=== PATIENT | female | born 1990 | race American Indian/Alaskan Native ===

== ENCOUNTER 2018-10-23 02:56 | Emergency (ER) | payer MEDICAID ==
[2018-10-23 03:46] LABS: Hematocrit 40.2 % (30.3-42.9); Mean Corpuscular HGB Conc 32 % (30-34); Mean Corpuscular Volume 84 fl (79-97); Platelet Count 230 K/mm3 (140-440); Red Blood Count 4.79 M/mm3 (3.65-5.03); Red Cell Distribution Width 15.6 % (13.2-15.2)
[2018-10-23 03:48] LABS: Bilirubin,Urine NEG (Negative); Blood,Urine SM (Negative); Color,Urine Yellow (Yellow); Mucus,Urine FEW /HPF; Protein,Urine <15 mg/dL mg/dL (Negative); Urobilinogen,Urine < 2.0 mg/dL (<2.0)
[2018-10-23 04:05] LABS: Alanine Aminotransferase 14 units/L (7-56); Albumin 4.2 g/dL (3.9-5); BUN/Creatinine Ratio 13; Blood Urea Nitrogen 10 mg/dL (7-17); Calcium 9.1 mg/dL (8.4-10.2); Hemolysis Index 5
[2018-10-23] MEDS ORDERED: FLEXERIL PO ONE (04:53)
[2018-10-23] MEDS ORDERED: TORADOL IM ONE (04:53)
[2018-10-23] MEDS ORDERED: ZOFRAN ODT PO ONE (04:53)
--- NOTE | 2018-10-23 05:17 | Cat Scan Report ---
PROCEDURE: CT HEAD/BRAIN WO CON TECHNIQUE: Computerized tomography of the head was performed without contrast material. CT DOSE LENGTH PRODUCT: 920.5 mGycm HISTORY: migraine x5 days COMPARISONS: None . FINDINGS: Exam is limited by artifacts patient's hair. Skull and scalp: Normal . Paranasal sinuses: Normal . Ventricles and subarachnoid spaces: Normal . Cerebrum: No evidence of hemorrhage, acute infarction or mass . Cerebellum and brainstem: No evidence of hemorrhage, acute infarction or mass . Vasculature: Normal . IMPRESSION: No acute abnormality is seen. The examination is limited. . This document is electronically signed by Josafat Meza MD., Oct 23 2018 05:15:03 AM ET
--- NOTE | 2018-10-23 05:45 | Emergency Department Report ---
ED Headache HPI - General Chief Complaint: Headache Stated Complaint: SEVERE MIGRAINE & BACK/NECK PAIN Time Seen by Provider: 10/23/18 04:40 Source: patient Exam Limitations: no limitations - History of Present Illness Initial Comments: Patient is a 28-year-old -Filipino female with a history of chronic migraine headaches who presents to the ED with the complaint of acute onset persistent bitemporal headaches and pressure with the photophobia and nausea for the last 4 days. Patient states that she's been taking Fioricet and Imitrex with no relief. Patient also complains of low back pain. Patient states that the headache is typical of her chronic migraine headaches, and that it is not the worst headache of her life. Patient denies vomiting, change in vision, d izziness, neck pain, fever, chills, sore throat, nasal and sinus congestion, chest pain or shortness of breath or syncope and seizures. Timing/Duration: constant, waxing and waning, other (4 DAYS) Quality: severe, constant, sharp, throbbing Head Injury Location: temporal Recent Head Trauma: no recent headache/trauma, chronic headaches, occasional headaches Associated Symptoms: denies: confusion, fatigue, facial pain, fever/chills, loss of consciousness, nausea/vomiting, nasal congestion, nasal drainage, numbness in legs/feet, seizures, sinus infection, stiff neck, vision changes Allergies/Adverse Reactions: Allergies No Known Allergies Allergy (Unverified 10/23/18 03:02) Home Medications: Ambulatory Orders Cyclobenzaprine [Flexeril] 10 mg PO TID PRN #15 tablet 10/23/18 Ketorolac [Toradol] 10 mg PO Q8H PRN #20 tablet 10/23/18 Promethazine [Phenergan] 25 mg PO Q6HR PRN #24 tab 10/23/18 ED Review of Systems ROS: Stated complaint: SEVERE MIGRAINE & BACK/NECK PAIN Other details as noted in HPI Comment: All other systems reviewed and negative Constitutional: no symptoms reported, see HPI, malaise. denies: chills, diaphoresis, weakness Eyes: as per HPI. denies: eye pain, eye discharge, vision change ENT: as per HPI, congestion. denies: ear pain, throat pain, hearing loss, epistaxis Respiratory: no symptoms reported, see HPI, cough. denies: shortness of breath, SOB with exertion, SOB at rest Cardiovascular: as per HPI. denies: chest pain, palpitations, dyspnea on exertion, syncope, paroxysmal nocturnal dyspnea Endocrine: no symptoms reported, see HPI. denies: excessive sweating, intolerance to heat, increased hunger Gastrointestinal: as per HPI, nausea. denies: abdominal pain, diarrhea, constipation, hematemesis, hematochezia Genitourinary: as per HPI. denies: urgency, dysuria, hematuria Musculoskeletal: as per HPI. denies: joint swelling, arthralgia Skin: as per HPI. denies: rash, lesions, change in color, change in hair/nails Neurological: as per HPI, headache. denies: numbness, paresthesias, confusion, abnormal gait, vertigo Psychiatric: as per HPI Hematological/Lymphatic: as per HPI ED Past Medical Hx - Past Medical History Previous Medical History?: Yes Hx Headaches / Migraines: Yes - Surgical History Past Surgical History?: No - Social History Smoking Status: Never Smoker - Medications Home Medications: Home Medications Medication Instructions Recorded Confirmed Last Taken Type Cyclobenzaprine [Flexeril] 10 mg PO TID PRN #15 tablet 10/23/18 Unknown Rx Ketorolac [Toradol] 10 mg PO Q8H PRN #20 tablet 10/23/18 Unknown Rx Promethazine [Phenergan] 25 mg PO Q6HR PRN #24 tab 10/23/18 Unknown Rx ED Physical Exam - General Limitations: No Limitations General appearance: alert, in no apparent distress - Head Head exam: Present: atraumatic, normocephalic, normal inspection - Eye Eye exam: Present: normal appearance, PERRL, EOMI - ENT ENT exam: Present: normal exam, normal orophraynx, mucous membranes moist, TM's normal bilaterally, normal external ear exam - Neck Neck exam: Present: normal inspection, full ROM. Absent: tenderness, meningismus, lymphadenopathy - Respiratory Respiratory exam: Present: normal lung sounds bilaterally. Absent: respiratory distress, wheezes, rhonchi, stridor, chest wall tenderness, accessory muscle use, decreased breath sounds - Cardiovascular Cardiovascular Exam: Present: bradycardia, normal heart sounds - GI/Abdominal GI/Abdominal exam: Present: soft, normal bowel sounds. Absent: tenderness, hyperactive bowel sounds, hypoactive bowel sounds - Rectal Rectal exam: Present: deferred - Extremities Exam Extremities exam: Present: normal inspection, full ROM, normal capillary refill - Back Exam Back exam: Present: normal inspection, full ROM. Absent: tenderness, CVA tenderness (R), CVA tenderness (L) - Neurological Exam Neurological exam: Present: alert, oriented X3, CN II-XII intact, normal gait, reflexes normal - Psychiatric Psychiatric exam: Present: normal affect - Skin Skin exam: Present: warm, dry, intact, normal color ED Course Vital Signs 10/23/18 10/23/18 10/23/18 02:59 03:02 06:18 Temperature 97.8 F 97.8 F Pulse Rate 56 L 50 L 58 L Respiratory 18 18 18 Rate Blood Pressure 155/103 155/103 Blood Pressure 122/77 [Left] O2 Sat by Pulse 100 100 99 Oximetry ED Medical Decision Making - Lab Data Result diagrams: 10/23/18 03:27 10/23/18 03:27 - Radiology Data Radiology results: report reviewed, image reviewed - Medical Decision Making Patient is alert and oriented x 3 and is in no acute distress with stable vital signs. Lab test results are unremarkable. Head CT Scan w/o contrast shows no acute intracranial abnormalities. Patient was treated for headache and on r eevaluation, headache has resolved with medications, and patient discharged home on medications and advised to follow up with her PCP in 2 days for reevaluation, or return to the ED immediately if symptoms get worse. - Differential Diagnosis chronic migraine headache, sinus headache, frontal sinusitis Critical care attestation.: If time is entered above; I have spent that time in minutes in the direct care of this critically ill patient, excluding procedure time. ED Disposition Clinical Impression: Spasm of muscle of lower back Migraine headache without aura Qualifiers: Status migrainosus presence: with status migrainosus Intractability: not intractable Qualified Code(s): G43.001 - Migraine without aura, not intractable, with status migrainosus Disposition: -01 TO HOME OR SELFCARE Is pt being admited?: No Does the pt Need Aspirin: No Condition: Stable Instructions: Migraine Headache (ED), Muscle Spasm (ED) Additional Instructions: TAKE MEDICATIONS WITH FOOD, DRINK PLENTY OF FLUIDS AND FOLLOW UP WITH YOUR PRIMARY CARE PHYSICIAN ADVISED. RETURN TO THE ED IMMEDIATELY IF SYMPTOMS GET WORSE. Prescriptions: Cyclobenzaprine [Flexeril] 10 mg PO TID PRN #15 tablet PRN Reason: Muscle Spasm Promethazine [Phenergan] 25 mg PO Q6HR PRN #24 tab PRN Reason: Nausea Ketorolac [Toradol] 10 mg PO Q8H PRN #20 tablet PRN Reason: Pain Referrals: PRIMARY CARE,MD [Primary Care Provider] - 3-5 Days Time of Disposition: 05:46 Print Language: [place]
[2018-10-23 06:19] VITALS: BP 122/77
[2018-10-23 08:21] LABS: Basophils % (Manual) 0 % (0.0-1.8); RBC Morphology Normal; Total Cells Counted 100
== END 2018-10-23 06:20 | disposition home or self-care (01) ==
LOC: ED 02:56
DX: G43.001 Migraine without aura, not intractable, with status migrainosus (principal); M62.830 Muscle spasm of back
CPT/HCPCS: 36415; 70450; 80053; 81001; 85007; 85025; 96372; 99284; J1885; Q0162

== ENCOUNTER 2019-05-11 11:32 | Emergency (ER) | payer SELFPAY ==
[2019-05-11 12:23] VITALS: BP 115/64
[2019-05-11] MEDS ORDERED: diphenhydrAMINE 50 MG/ML VIAL IV STA (13:33)
[2019-05-11] MEDS ORDERED: SODIUM CHLORIDE 0.9% 1000 ML 1,000 ML IV ONE (13:33)
[2019-05-11] MEDS ORDERED: dexAMETHasone 4 MG/ML VIAL IV ONE (13:33)
[2019-05-11] MEDS ORDERED: METOCLOPRAMIDE 10 MG/2 ML INJ IV STA (13:33)
[2019-05-11] MEDS ORDERED: KETOROLAC 30 MG/1 ML INJ IV STA (13:33)
--- NOTE | 2019-05-11 14:12 | Emergency Department Report ---
ED Headache HPI - General Chief Complaint: Headache Stated Complaint: MIGRAINE AND BACK PAIN Time Seen by Provider: 05/11/19 13:32 - History of Present Illness Initial Comments: 28 -year-old [place]an female with a known past medical history of migraine headaches presents emergency department complaining of a 5-7 days exacerbations the left parietal migraine headache associated with occasional dizziness, blurred vision and nausea and photo phobia. Timing/Duration: 1 week Quality: mild, moderate Head Injury Location: parietal Recent Head Trauma: chronic headaches Associated Symptoms: denies: fatigue, fever/chills, flushing, loss of consciousness, nausea/vomiting, nasal congestion, nasal drainage, seizures, stiff neck, vision changes, weakness Allergies/Adverse Reactions: Allergies Sulfa (Sulfonamide Antibiotics) Allergy (Verified 05/11/19 11:33) Anaphylaxis Home Medications: Ambulatory Orders Cyclobenzaprine [Flexeril] 10 mg PO TID PRN #15 tablet 10/23/18 Ketorolac [Toradol] 10 mg PO Q8H PRN #20 tablet 10/23/18 Promethazine [Phenergan] 25 mg PO Q6HR PRN #24 tab 10/23/18 Ketorolac [Toradol] 10 mg PO Q6H PRN #15 tablet 05/11/19 methOCARBAMOL [Robaxin TAB] 750 mg PO Q8H PRN #14 tablet 05/11/19 ED Review of Systems ROS: Stated complaint: MIGRAINE AND BACK PAIN Other details as noted in HPI Comment: All other systems reviewed and negative ED Past Medical Hx - Past Medical History Previous Medical History?: Yes Hx Headaches / Migraines: Yes Hx Asthma: Yes Additional medical history: anxiety - Surgical History Past Surgical History?: Yes Additional Surgical History: T&A - Social History Smoking Status: Never Smoker Substance Use Type: None - Medications Home Medications: Home Medications Medication Instructions Recorded Confirmed Last Taken Type Cyclobenzaprine [Flexeril] 10 mg PO TID PRN #15 tablet 10/23/18 Unknown Rx Ketorolac [Toradol] 10 mg PO Q8H PRN #20 tablet 10/23/18 Unknown Rx Promethazine [Phenergan] 25 mg PO Q6HR PRN #24 tab 10/23/18 Unknown Rx Ketorolac [Toradol] 10 mg PO Q6H PRN #15 tablet 05/11/19 Unknown Rx methOCARBAMOL [Robaxin TAB] 750 mg PO Q8H PRN #14 tablet 05/11/19 Unknown Rx ED Physical Exam - General Limitations: No Limitations General appearance: alert, in no apparent distress - Head Head exam: Present: atraumatic, normocephalic - Eye Eye exam: Present: normal appearance, PERRL, EOMI Pupils: Present: normal accommodation, other (negative funduscopic examination) - ENT ENT exam: Present: normal exam, normal orophraynx, mucous membranes moist, TM's normal bilaterally - Neck Neck exam: Present: normal inspection, full ROM - Respiratory Respiratory exam: Present: normal lung sounds bilaterally. Absent: respiratory distress, wheezes, rales, chest wall tenderness, accessory muscle use - Cardiovascular Cardiovascular Exam: Present: regular rate, normal rhythm. Absent: systolic murmur, diastolic murmur, rubs, gallop - GI/Abdominal GI/Abdominal exam: Present: soft, normal bowel sounds. Absent: distended, tenderness, guarding, rebound, hyperactive bowel sounds, hypoactive bowel sounds, organomegaly, bruit - Extremities Exam Extremities exam: Present: normal inspection, full ROM, normal capillary refill - Back Exam Back exam: Present: normal inspection, paraspinal tenderness. Absent: CVA tenderness (R), vertebral tenderness - Neurological Exam Neurological exam: Present: alert, oriented X3, CN II-XII intact, normal gait, other (Romberg negative) - Psychiatric Psychiatric exam: Present: normal affect, normal mood - Skin Skin exam: Present: warm, dry, intact, normal color. Absent: rash ED Course Vital Signs 05/11/19 12:19 Temperature 98.3 F Pulse Rate 72 Respiratory 18 Rate Blood Pressure 115/64 O2 Sat by Pulse 98 Oximetry - Reevaluation(s) Reevaluation #1: 05/11/19 15:24 On unable to reevaluate the response to the medication due to the patient is on indications latency is returning home her having her 8-month-old child in the emergency department. The patient removed her own IV stating that she can get Toradol and outside IV location. I did not have communication with the patient upon her leaving the emergency department. According to the nurse she was alert and oriented stable gait walking on her own power without limitation ED Medical Decision Making - Medical Decision Making Ms. Dixon 28-year-old female with a known past medical history of recurrent migraine headaches presents with a headache most consistent with migraine. She states that these migraines have reemerge; more consistent since having her baby about 8-9 months ago. Her physical examination was benign and her and her vital signs were stable. Based on the patient's history and physical there is very low clinical suspicion for significant intracranial pathology. The headache was NOT sudden onset, NOT maximal at onset, there are NO neurologic findings, the patient does NOT have a fever, the patient does NOT have any jaw claudication, the patient does NOT endorse a clotting disorder, patient DENIES any trauma or eye pain and the headache is NOT associated with dizziness or ataxia. Differential diagnosis includes migraine versus tension type headache. No headache red flags. Neurologic exam without evidence of meningismus, focal neurologic findings. Presentation not consistent with acute intracranial bleed to include SAH (lack of risk factors, headache history). 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 Presentation not consistent with other acute, emergent causes of headache at this time. Plan to treat symptomatically with pain medication and reassess. No indication for imaging/LP at this time as characteristic has not changed nor has the intensity change. No evidence of any infectious process going on at current. No meningeal signs. Plan: pain medication and serial reassessment She maintained neurological stability throughout the entire emergency room visit she is ambulatory of sound judgment alert and oriented and cranial nerves remained intact Critical care attestation.: If time is entered above; I have spent that time in minutes in the direct care of this critically ill patient, excluding procedure time. ED Disposition Clinical Impression: Cephalgia, Lumbago Disposition: TO HOME OR SELFCARE Is pt being admited?: No Does the pt Need Aspirin: No Condition: Stable Instructions: Migraine Headache (ED), Acute Headache (ED), Chronic Back Pain (ED) Additional Instructions: Move around as tolerated but avoiding heavy lifting. Bed rest is not recommended nor is it the best treatment for low back pain. Medications will help control your discomfort: Ibuprofen (800 mg every 8 hours for pain). Acetaminophen-hydrocodone (one to two tabs every 4 to 6 hours for pain). Do not drink alcohol, drive a car, operate machinery, or get up on ladders or heights when taking any prescribed pain medications. Do not drive home if you received prescribed pain medications here in the ED. Please follow up with your primary care physician as needed. If you do not have a primary doctor, you can call your insurance company to find one. If you do not have insurance, you can go to the finance/registration department for more assistance. Return to the ED immediately if you develop any of the following problems: Leaking urine or difficulty urinating; Inability to control your bowels; New numbness or weakness in your legs or numbness between your legs; Inability to walk Fever Prescriptions: methOCARBAMOL [Robaxin TAB] 750 mg PO Q8H PRN #14 tablet PRN Reason: Pain, Moderate (4-6) Ketorolac [Toradol] 10 mg PO Q6H PRN #15 tablet PRN Reason: Pain Referrals: JHONY TENORIO MD [Staff] - 3-5 Days BAL MCRAE MD [Staff Physician] - 3-5 Days JERZY CHILDRESS MD [Referring] - 3-5 Days ED Back Pain HPI - General Chief Complaint: Headache Stated Complaint: MIGRAINE AND BACK PAIN Time Seen by Provider: 05/11/19 13:32 Source: patient - History of Present Illness Initial Comments: 28-year-old [place]an female with a known past medical history of chronic back pain is due to a slip and fall in November 2017 while working at [employer]. Patient slipped and fell in water all resulting in back pain. She was seen and evaluated by her appointed physician is undergoing physical therapy with continued pain. She is doing. Facet joint injections but this would not take place until May 2019 and at this present time she is having a flareup of back pain and seeks analgesic's assistance. She reports no change in characteristics, no loss of bowel or bladder, no saddle paresthesia. No fever, chills, sweats no chest pain or palpitations no vomiting. No dysuria or hematuria Timing/Duration: constant Quality/Severity: moderate Back Pain Location: lumbar spine (left paraspinous region) Allergies/Adverse Reactions: Allergies Sulfa (Sulfonamide Antibiotics) Allergy (Verified 05/11/19 11:33) Anaphylaxis Home Medications: Ambulatory Orders Cyclobenzaprine [Flexeril] 10 mg PO TID PRN #15 tablet 10/23/18 Ketorolac [Toradol] 10 mg PO Q8H PRN #20 tablet 10/23/18 Promethazine [Phenergan] 25 mg PO Q6HR PRN #24 tab 10/23/18 Ketorolac [Toradol] 10 mg PO Q6H PRN #15 tablet 05/11/19 methOCARBAMOL [Robaxin TAB] 750 mg PO Q8H PRN #14 tablet 05/11/19
== END 2019-05-11 15:25 | disposition home or self-care (01) ==
LOC: ED 11:32
DX: G43.909 Migraine, unspecified, not intractable, without status migrainosus (principal); M54.5 Low back pain; J45.909 Unspecified asthma, uncomplicated; F41.9 Anxiety disorder, unspecified; R42 Dizziness and giddiness; Z88.2 Allergy status to sulfonamides; Z79.899 Other long term (current) drug therapy
CPT/HCPCS: 96361; 96374; 96375; 99282; J1100; J1200; J1885; J2765; J7030

== ENCOUNTER 2020-05-23 18:33 | Emergency (ER) | payer SELFPAY | END 2020-05-23 18:54 | disposition left against medical advice (07) | LOC: ED 18:33 | DX: M79.10 Myalgia, unspecified site (principal); Z53.21 Procedure and treatment not carried out due to patient leaving prior to being seen by health care provider ==

== ENCOUNTER 2020-05-25 09:46 | Emergency (ER) | payer OTHER, MEDICAID ==
[2020-05-25] MEDS ORDERED: KETOROLAC 30 MG/1 ML INJ IM ONE (11:54)
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
[2020-05-25 14:04] VITALS: BP 118/78
== END 2020-05-25 12:45 | disposition home or self-care (01) ==
LOC: ED 09:46
DX: M54.6 Pain in thoracic spine (principal); R51.9 Headache, unspecified; J45.909 Unspecified asthma, uncomplicated; Z98.890 Other specified postprocedural states; Z79.899 Other long term (current) drug therapy; Z88.2 Allergy status to sulfonamides; V49.49XA Driver injured in collision with other motor vehicles in traffic accident, initial encounter; Y93.89 Activity, other specified; Y92.410 Unspecified street and highway as the place of occurrence of the external cause; Y99.8 Other external cause status
CPT/HCPCS: 96372; 99282; J1885

== ENCOUNTER 2021-09-01 10:32 | Emergency (ER) | payer MEDICAID, OTHER ==
--- NOTE | 2021-09-01 11:59 | Emergency Department Report ---
<JOSE AGUERO A - Last Filed: 09/01/21 15:00> ED Abdominal Pain HPI - General Chief Complaint: Abdominal Pain Stated Complaint: ABD PAIN/MIGRAINE Time Seen by Provider: 09/01/21 11:48 Source: patient Mode of arrival: Ambulatory Limitations: No Limitations - History of Present Illness Initial Comments: This pleasant 31-year-old female presents the emergency department with a chief complaint of nausea, vomiting, diarrhea over the past few days. She states she initially started with a migraine headache which she gets migraines often and then followed by nausea, vomiting, diarrhea, some bloating and gassiness as well as night sweats and pain in the lower abdomen worse on the right. She denies any known past medical history, current medication use and has allergies to sulfa. Severity scale (0 -10): 9 - Related Data Previous Rx's Medication Instructions Recorded Last Taken Type Butalb/Acetaminophen/Caffeine 1 cap PO Q6HR PRN #5 cap 09/01/21 Unknown Rx [Fioricet 50-300-40 mg CAP] Naproxen [EC-Naprosyn] 500 mg PO BID #14 tab 09/01/21 Unknown Rx Ondansetron [Zofran Odt] 4 mg PO Q8HR PRN #12 tab.rapdis 09/01/21 Unknown Rx Allergies Allergy/AdvReac Type Severity Reaction Status Date / Time Sulfa (Sulfonamide Allergy Anaphylaxis Verified 09/01/21 11:41 Antibiotics) ED Review of Systems Comment: All other systems reviewed and negative Constitutional: denies: chills, fever Eyes: denies: eye pain, eye discharge, vision change ENT: denies: ear pain, throat pain Respiratory: denies: cough, shortness of breath, wheezing Cardiovascular: denies: chest pain, palpitations Endocrine: no symptoms reported Gastrointestinal: as per HPI, abdominal pain, nausea, vomiting, diarrhea Genitourinary: denies: urgency, dysuria, discharge Musculoskeletal: denies: back pain, joint swelling, arthralgia Skin: denies: rash, lesions Neurological: denies: headache, weakness, paresthesias Psychiatric: denies: anxiety, depression Hematological/Lymphatic: denies: easy bleeding, easy bruising ED Past Medical Hx - Past Medical History Hx Headaches / Migraines: Yes Hx Asthma: Yes Additional medical history: anxiety - Surgical History Additional Surgical History: T&A - Social History Smoking Status: Never Smoker Substance Use Type: None - Medications Home Medications: Home Medications Medication Instructions Recorded Confirmed Last Taken Type Butalb/Acetaminophen/Caffeine 1 cap PO Q6HR PRN #5 cap 09/01/21 Unknown Rx [Fioricet 50-300-40 mg CAP] Naproxen [EC-Naprosyn] 500 mg PO BID #14 tab 09/01/21 Unknown Rx Ondansetron [Zofran Odt] 4 mg PO Q8HR PRN #12 tab.rapdis 09/01/21 Unknown Rx ED Physical Exam - General Limitations: No Limitations General appearance: alert, in no apparent distress - Head Head exam: Present: atraumatic, normocephalic - Eye Eye exam: Present: normal appearance, PERRL, EOMI Pupils: Present: normal accommodation - ENT ENT exam: Present: normal exam, normal orophraynx, mucous membranes moist - Neck Neck exam: Present: normal inspection, full ROM. Absent: tenderness, meningismus - Respiratory Respiratory exam: Present: normal lung sounds bilaterally. Absent: respiratory distress, wheezes, rales, rhonchi, stridor - Cardiovascular Cardiovascular Exam: Present: regular rate, normal rhythm, normal heart sounds. Absent: systolic murmur, diastolic murmur, rubs, gallop - GI/Abdominal GI/Abdominal exam: Present: soft, tenderness (Mild tenderness to the lower abdomen, no rebound or guarding. Negative McBurney's point tenderness, negative Bell sign), normal bowel sounds. Absent: distended, guarding, rebound, rigid - Extremities Exam Extremities exam: Present: normal inspection, full ROM, normal capillary refill. Absent: tenderness, calf tenderness - Back Exam Back exam: Present: normal inspection, full ROM. Absent: tenderness, CVA tenderness (R), CVA tenderness (L) - Neurological Exam Neurological exam: Present: alert, oriented X3, normal gait - Psychiatric Psychiatric exam: Present: normal affect, normal mood - Skin Skin exam: Present: warm, dry, intact, normal color. Absent: rash ED Course - Reevaluation(s) Reevaluation #1: 09/01/21 15:00 Patient's labs relatively unremarkable other than a mild elevation of her LFTs. Reexam the patient had no right upper quadrant tenderness and negative Bell sign. She is given IV fluids, antiemetics and Toradol for pain and felt better. CT scan is pending. See oncoming provider Markell's note for dispo details. ED Medical Decision Making - Lab Data Result diagrams: 09/01/21 12:57 09/01/21 12:57 ED Disposition Clinical Impression: Enteritis Disposition: 01 HOME / SELF CARE / HOMELESS Condition: Stable Instructions: Viral Gastroenteritis, Adult, [id number], Abdominal Pain (ED) Additional Instructions: Take medications as prescribed. Follow-up with primary care provider if wor sening symptoms. Return to the emergency department for any concerning symptoms. Prescriptions: Naproxen [EC-Naprosyn] 500 mg PO BID #14 tab Butalb/Acetaminophen/Caffeine [Fioricet 50-300-40 mg CAP] 1 cap PO Q6HR PRN #5 cap PRN Reason: Headache Ondansetron [Zofran Odt] 4 mg PO Q8HR PRN #12 tab.rapdis PRN Reason: Nausea And Vomiting Referrals: RACHEL SAUCEDA MD [Referring] - 3-5 Days <MARKELL HARMON - Last Filed: 09/01/21 16:02> ED Review of Systems ROS: Stated complaint: ABD PAIN/MIGRAINE Other details as noted in HPI ED Course Vital Signs 09/01/21 09/01/21 11:40 15:59 Temperature 98.5 F 97.8 F Pulse Rate 108 H 78 Respiratory 16 17 Rate Blood Pressure 121/83 132/76 [Right] O2 Sat by Pulse 100 100 Oximetry ED Medical Decision Making - Lab Data Result diagrams: 09/01/21 12:57 09/01/21 12:57 Critical care attestation.: If time is entered above; I have spent that time in minutes in the direct care of this critically ill patient, excluding procedure time. ED Disposition Is pt being admited?: No Does the pt Need Aspirin: No Time of Disposition: 15:43
[2021-09-01 13:26] LABS: Bilirubin,Urine NEG (Negative); Blood,Urine NEG (Negative); Color,Urine Amber (Yellow)
[2021-09-01 13:28] LABS: HCG Qualitative,Urine Negative (Negative)
[2021-09-01 13:31] LABS: Basophils % (Auto) 1.2 % (0.0-1.8); Eosinophils # (Auto) 0.3 K/mm3 (0.0-0.4); Eosinophils % (Auto) 9.7 % (0.0-4.3); Lymphocytes # (Auto) 0.9 K/mm3 (1.2-5.4); Lymphocytes % (Auto) 30.1 % (13.4-35.0); Mean Corpuscular HGB Conc 32 % (30-34); Mean Corpuscular Volume 83 fl (79-97); Monocytes # (Auto) 0.4 K/mm3 (0.0-0.8); Monocytes % (Auto) 13.2 % (0.0-7.3); Platelet Count 187 K/mm3 (140-440); Red Blood Count 4.56 M/mm3 (3.65-5.03); Red Cell Distribution Width 14.1 % (13.2-15.2)
[2021-09-01 13:51] LABS: Mucus,Urine 1+ /HPF; RBC,Urine < 1.0 /HPF (0.0-6.0); WBC,Urine < 1.0 /HPF (0.0-6.0)
[2021-09-01 13:54] LABS: Alanine Aminotransferase 92 units/L (7-56); Albumin 4.1 g/dL (3.9-5); Blood Urea Nitrogen 8 mg/dL (7-17); Calcium 9.3 mg/dL (8.4-10.2); Hemolysis Index 3
[2021-09-01 13:55] LABS: BUN/Creatinine Ratio 11
[2021-09-01] MEDS ORDERED: SODIUM CHLORIDE 0.9% 1000 ML 1,000 ML IV ONE (14:18)
[2021-09-01] MEDS: KETOROLAC 30 MG/1 ML INJ IV ONE ×2 (14:26→14:33)
[2021-09-01] MEDS: ONDANSETRON 4 MG/2 ML INJ IV ONE ×2 (14:27→14:33)
--- NOTE | 2021-09-01 15:36 | Cat Scan Report ---
CT ABDOMEN AND PELVIS WITH IV CONTRAST, 09/01/2021 INDICATION: Right lower quadrant abdominal pain TECHNIQUE: Following the administration of intravenous contrast, multiple axial CT images of the abdo men and pelvis were acquired. Sagittal and coronal reformats were obtained. All CT performed at this facility utilize dose reduction techniques including automated exposure control, iterative reconstru ction and weight based dosing when appropriate to reduce patient radiation dose to as low as reasonab ly achievable. COMPARISON: No relevant prior study is available for comparison. FINDINGS: Lung bases: Limited imaging of the bilateral lung bases demonstrates a fluid collection around the in ferior aspect of the heart, partially visualized. ABDOMEN: LIVER/BILE DUCTS: No significant abnormality. GALL BLADDER: No significant abnormality. STOMACH: No significant abnormality. PANCREAS: No significant abnormality. SPLEEN: No significant abnormality. ADRENALS: No significant abnormality. RIGHT KIDNEY / URETER: No significant abnormality. LEFT KIDNEY / URETER: No significant abnormality. AORTA: The abdominal aorta is normal in caliber. SMALL AND LARGE BOWEL: There are multiple loops of mildly prominent fluid-filled hyperenhancing mid a nd distal small bowel. There is no evidence to suggest bowel obstruction. APPENDIX: The appendix is not clearly identified but there are no focal pericecal inflammatory change s to suggest appendicitis. PELVIS: There is a small to moderate amount of free fluid within the pelvis. Multiple enhancing loops of fluid-filled small bowel are again noted. The uterus appears within normal limits. The urinary bl adder shows no focal abnormality BONES: Evaluation of bony structures demonstrates no acute bony abnormality. SOFT TISSUES: Evaluation of soft tissue structures demonstrates no focal soft tissue abnormality. IMPRESSION: 1. Multiple loops of mildly prominent fluid-filled enhancing mid and distal small bowel. This is a no nspecific finding but may suggest enteritis in the appropriate clinical setting. Please correlate wit h patient's clinical circumstances. 2. Nonvisualization of the appendix in this patient with right lower quadrant abdominal pain. There a re no pericecal inflammatory changes to suggest appendicitis. Signer Name: Kell Kee MD Signed: 09/01/2021 3:29 PM Workstation Name: [id number]
[2021-09-01 16:00] VITALS: BP 132/76
== END 2021-09-01 16:33 | disposition home or self-care (01) ==
LOC: ED 10:32
DX: K52.9 Noninfective gastroenteritis and colitis, unspecified (principal); G43.909 Migraine, unspecified, not intractable, without status migrainosus; J45.909 Unspecified asthma, uncomplicated; Z88.2 Allergy status to sulfonamides
CPT/HCPCS: 36415; 74177; 80053; 81001; 81025; 83690; 85025; 96361; 96374; 96375; 99284; J1885; J2405; J7030; Q9967; Q0162